=== PATIENT | female | born 1950 | race Caucasian/White ===

== ENCOUNTER → 2017-07-28 | Day surgery (SDC) | payer MEDICARE, OTHER ==
[~2017-07-28] MED LIST: Lactated Ringers 1,000 ML IV SCH; Lidocaine 1%/Sod Bicarbonate in NS 8.4% 1 ML Syringe IDERM PRN; Propofol 200 MG/20 ML SDV ONE; Sodium Chloride 0.9% 10 ML Syringe FLUSH PRN; fentaNYL 100 MCG/2 ML SDV ONE
--- NOTE | 2017-07-28 09:25 | PCM.PREANE ---
Preanesthetic Assessment - Procedure Proposed Procedure: Diagnostic colonsocopy - Anesthesia/Transfusion/Family Hx Anesthesia History: Prior Anesthesia Without Reaction Family History of Anesthesia Reaction: No Transfusion History: No Prior Transfusion(s) Additional History: Rheumatiod arthritis - Review of Systems General: No Symptoms Pulmonary: Other Cardiovascular: Other (HTN) Gastrointestinal: No Symptoms Neurological: No Symptoms Other: Reports: None, Thyroid Problems (graves disease ) - Physical Assessment NPO Status Date: 07/27/17 NPO Status Time: 19:00 O2 Sat by Pulse Oximetry: 98 Respiratory Rate: 16 Vital Signs: Last Vital Signs Temp 36.2 C 07/28/17 08:50 Pulse 61 07/28/17 08:50 Resp 16 07/28/17 08:50 BP 113/66 07/28/17 08:50 Pulse Ox 98 07/28/17 08:50 Height: 1.68 m Weight: 80.286 kg ASA Class: 2 Mental Status: Alert & Oriented x3 Airway Class: Mallampati = 2 Dentition: Reports: Normal Dentition Thyro-Mental Finger Breadths: 3 Mouth Opening Finger Breadths: 3 ROM/Head Extension: Full Lungs: Clear to Auscultation, Normal Respiratory Effort Cardiovascular: Regular Rate, Regular Rhythm - Allergies Allergies/Adverse Reactions: Allergies Allergy/AdvReac Type Severity Reaction Status Date / Time No Known Allergies Allergy Verified 07/27/17 12:06 - Blood Blood Available: No Product(s) Available: None - Anesthesia Plan Pre-Op Medication Ordered: None - Acknowledgements Anesthesia Type Planned: MAC Pt an Appropriate Candidate for the Planned Anesthesia: Yes Alternatives and Risks of Anesthesia Discussed w Pt/Guardian: Yes Pt/Guardian Understands and Agrees with Anesthesia Plan: Yes PreAnesthesia Questionnaire HEENT History: Reports: None Cardiovascular History: Reports: Hypertension Respiratory History: Reports: None Gastrointestinal History: Reports: Colon Polyp Genitourinary History: Reports: None 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 (See Below) Other OB/BYN History: bacterial vaginosis Musculoskeletal History: Reports: Osteoporosis, RA Neurological History: Reports: None Psychiatric History: Reports: None Endocrine/Metabolic History: Reports: Hypothyroidism, Other (See Below) Other Endocrine/Metabolic History: graves disease Hematologic History: Reports: None Immunologic History: Reports: None Oncologic (Cancer) History: Reports: Colon Dermatologic History: Reports: None - Past Surgical History Head Surgeries/Procedures: Reports: None HEENT Surgical History: Reports: None Cardiovascular Surgical History: Reports: None Respiratory Surgical History: Reports: None GI Surgical History: Reports: Colonoscopy, Other (See Below) Other GI Surgeries/Procedures: subtotal colectomy, rectal surgery Female Surgical History: Reports: None Male Surgical History: Reports: None Endocrine Surgical History: Reports: Thyroidectomy Neurological Surgical History: Reports: None Musculoskeletal Surgical History: Reports: None Oncologic Surgical History: Reports: None Dermatological Surgical History: Reports: None - SUBSTANCE USE Smoking Status *Q: Current Every Day Smoker (4cig/day) Second Hand Smoke Exposure: No Recreational Drug Use History: No - HOME MEDS Home Medications: Home Meds Alendronate Sodium [Fosamax] 70 mg PO TU 07/27/17 [History] Cholecalciferol (Vitamin D3) [Vitamin D3] 1,000 unit PO DAILY 07/27/17 [History] Folic Acid 1 mg PO DAILY 07/27/17 [History] Levothyroxine Sodium 137 mcg PO DAILY 07/27/17 [History] Loperamide [Imodium] 2 mg PO DAILY 07/27/17 [History] Losartan [Cozaar] 50 mg PO DAILY 07/27/17 [History] Methotrexate Sodium [Methotrexate] 4 tab PO WETH 07/27/17 [History] Naproxen Sodium [Aleve] 220 mg PO DAILY 07/27/17 [History] - CURRENT (IN HOUSE) MEDS Current Meds: Current Medications Lactated Ringer's (Ringers, Lactated) 1,000 mls @ 125 mls/hr IV ASDIRECTED ANDREZ Stop: 07/28/17 23:00 Last Admin: 07/28/17 09:00 Dose: 125 mls/hr Lidocaine/Sodium Bicarbonate (Buffered Lidocaine 1% In Ns 8.4%) 0.25 ml IDERM ONETIME PRN PRN Reason: Prior to IV Start Stop: 07/28/17 18:00 Last Admin: 07/28/17 09:00 Dose: 0.25 ml Sodium Chloride (Saline Flush) 10 ml FLUSH ASDIRECTED PRN PRN Reason: Keep Vein Open Stop: 07/28/17 18:00
--- NOTE | 2017-07-28 10:06 | PCM.OPNOTE ---
- General Post-Op/Procedure Note Date of Surgery/Procedure: 07/28/17 Operative Procedure(s): Colonoscopy Findings: Poor bowel preparation. Normal anastomosis with no stricturing or evidence of recurrence and no polyps or mass lesions seen. Anastomotic staple visualized. Pre Op Diagnosis: History of colon cancer and colorectal polyps status post sigmoid resection Post-Op Diagnosis: Unremarkable postresection colon Anesthesia Technique: MAC, Moderate Sedation Primary Surgeon: Celestine Medeiros Pathology: None EBL in mLs: 0 Complications: None Condition: Good Free Text/Narrative:: After adequate IV sedation and analgesia was obtained with monitoring the patient was placed on her left side. Perianal inspection and digital rectal examination were unremarkable. A lubricated colonoscope was inserted into the rectum and advanced under direct vision to the cecum. The bowel preparation was poor. Fine mucosal detail and diminutive polyps couldn't be observed. No gross mass lesions or inflammatory changes were seen throughout the entire examination. The anastomosis was visualized and there was a staple present. There was no stricturing or recurrence in this area. The rectum in both views was unremarkable. Photographs were taken for the patient and for the medical record. Air was removed as I finished the procedure which she tolerated well.
--- NOTE | 2017-07-28 10:08 | PCM48HPAN ---
Post Anesthesia Note - EVALUATION WITHIN 48HRS OF ANESTHETIC Vital Signs in Normal Range: Yes Patient Participated in Evaluation: Yes Respiratory Function Stable: Yes Airway Patent: Yes Cardiovascular Function Stable: Yes Hydration Status Stable: Yes Pain Control Satisfactory: Yes Nausea and Vomiting Control Satisfactory: Yes Mental Status Recovered: Yes
== END | disposition home or self-care (01) ==
LOC: JD.SDS 08:46
PROVIDERS: ATTEND Surgery
DX: Z12.11 Encounter for screening for malignant neoplasm of colon (principal); N76.0 Acute vaginitis; B96.89 Other specified bacterial agents as the cause of diseases classified elsewhere; I10 Essential (primary) hypertension; M81.0 Age-related osteoporosis without current pathological fracture; E66.3 Overweight; E89.0 Postprocedural hypothyroidism; M06.9 Rheumatoid arthritis, unspecified; F17.210 Nicotine dependence, cigarettes, uncomplicated; Z68.29 Body mass index [BMI] 29.0-29.9, adult; Z85.038 Personal history of other malignant neoplasm of large intestine; Z86.010 Personal history of colon polyps; Z79.899 Other long term (current) drug therapy; Z90.49 Acquired absence of other specified parts of digestive tract; Z80.0 Family history of malignant neoplasm of digestive organs
CPT/HCPCS: 45378; J3010; J7120; J2704

== ENCOUNTER 2020-03-19 07:58 | Day surgery (SDC) | payer MEDICARE, OTHER ==
[~2020-03-19 07:58] MED LIST changes: -Propofol 200 MG/20 ML SDV ONE; -fentaNYL 100 MCG/2 ML SDV ONE
--- NOTE | 2020-03-19 08:54 | PCM.PREANE ---
Preanesthetic Assessment - Procedure Proposed Procedure: Screening Colonoscopy - Anesthesia/Transfusion/Family Hx Anesthesia History: Prior Anesthesia Without Reaction Family History of Anesthesia Reaction: No Transfusion History: No Prior Transfusion(s) - Review of Systems General: No Symptoms Pulmonary: No Symptoms Cardiovascular: No Symptoms Gastrointestinal: No Symptoms Neurological: No Symptoms Other: Reports: Thyroid Problems (hypothyroid) - Physical Assessment NPO Status Date: 03/18/20 NPO Status Time: 00:00 Height: 1.7 m Weight: 94.5 kg ASA Class: 3 Mental Status: Alert & Oriented x3 Airway Class: Mallampati = 2 Dentition: Reports: Normal Dentition, [place](s), [place] Thyro-Mental Finger Breadths: 3 Mouth Opening Finger Breadths: 3 ROM/Head Extension: Full Lungs: Clear to Auscultation, Normal Respiratory Effort Cardiovascular: Regular Rate, Regular Rhythm - Allergies Allergies/Adverse Reactions: Allergies Allergy/AdvReac Type Severity Reaction Status Date / Time No Known Allergies Allergy Verified 03/18/20 13:34 - Blood Blood Available: No Product(s) Available: None - Anesthesia Plan Pre-Op Medication Ordered: None - Acknowledgements Anesthesia Type Planned: MAC Pt an Appropriate Candidate for the Planned Anesthesia: Yes Alternatives and Risks of Anesthesia Discussed w Pt/Guardian: Yes Pt/Guardian Understands and Agrees with Anesthesia Plan: Yes PreAnesthesia Questionnaire HEENT History: Reports: Impaired Vision, Sinusitis, Other (See Below) Other HEENT History: ACUTE PHARYNGITIS Cardiovascular History: Reports: Hypertension Respiratory History: Reports: None Gastrointestinal History: Reports: Colon Polyp Other Gastrointestinal History: POLYPOSIS Genitourinary History: Reports: None 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: Other (See Below) Other OB/BYN History: bacterial vaginosis Musculoskeletal History: Reports: Osteoporosis, RA, Other (See Below) Other Musculoskeletal History: LEG PAIN, MUSCLE WEAKNESS, OSTEOPOROSIS, RIGHT FOOT PAIN, RIGHT HIP PAIN Neurological History: Reports: None Psychiatric History: Reports: None Endocrine/Metabolic History: Reports: Hypothyroidism, Other (See Below) Other Endocrine/Metabolic History: graves disease Hematologic History: Reports: None Immunologic History: Reports: None Oncologic (Cancer) History: Reports: Colon, Other (See Below) Other Oncologic History: RECTAL CANCER, SKIN CANCER Dermatologic History: Reports: None, Other (See Below) Other Dermatologic History: ONCHOMYCOSIS - Infectious Disease History Infectious Disease History: Reports: None - Past Surgical History Head Surgeries/Procedures: Reports: None HEENT Surgical History: Reports: None Cardiovascular Surgical History: Reports: None Respiratory Surgical History: Reports: None GI Surgical History: Reports: Colonoscopy, Other (See Below) Other GI Surgeries/Procedures: subtotal colectomy, rectal surgery Female Surgical History: Reports: None Male Surgical History: Reports: None Endocrine Surgical History: Reports: Thyroidectomy Neurological Surgical History: Reports: None Musculoskeletal Surgical History: Reports: None Oncologic Surgical History: Reports: None Dermatological Surgical History: Reports: None - SUBSTANCE USE Smoking Status *Q: Current Every Day Smoker Tobacco Use Within Last Twelve Months: Cigarettes Second Hand Smoke Exposure: No Days Per Week of Alcohol Use: 0 Number of Drinks Per Day: 0 Total Drinks Per Week: 0 Recreational Drug Use History: No - HOME MEDS Home Medications: Home Meds Alendronate Sodium [Fosamax] 70 mg PO WE 07/27/17 [History] Folic Acid 2 mg PO SUMOTUWEFRSA 07/27/17 [History] Levothyroxine Sodium 137 mcg PO TUTH 07/27/17 [History] Losartan [Cozaar] 50 mg PO DAILY 07/27/17 [History] metHOTREXate sodium [Methotrexate] 8 tab PO TH 07/27/17 [History] Amoxicillin 2,000 mg PO ONETIME PRN 03/18/20 [History] Levothyroxine 150 mcg PO SUMOWEFRSA 03/18/20 [History] Multivitamin [Daily Multiple Vitamin] 1 tab PO DAILY 03/18/20 [History] Naproxen 500 mg PO Q12H PRN 03/18/20 [History] - CURRENT (IN HOUSE) MEDS Current Meds: Current Medications Lactated Ringer's (Ringers, Lactated) 1,000 mls @ 125 mls/hr IV ASDIRECTED ANDREZ Stop: 03/19/20 23:00 Lidocaine/Sodium Bicarbonate (Buffered Lidocaine 1% In Ns 8.4%) 0.25 ml IDERM ONETIME PRN PRN Reason: Prior to IV Start Stop: 03/19/20 23:00 Sodium Chloride (Saline Flush) 10 ml FLUSH ASDIRECTED PRN PRN Reason: Keep Vein Open Stop: 03/19/20 18:00
[2020-03-19] MEDS ORDERED: fentaNYL 100 MCG/2 ML SDV ONE (09:02)
[2020-03-19] MEDS ORDERED: Propofol 200 MG/20 ML SDV ONE (09:02)
[2020-03-19] MEDS ORDERED: Lidocaine 1% 4 ML ONE (09:04)
--- NOTE | 2020-03-19 09:57 | PCM.PRNOTE ---
- Free Text/Narrative Note: Date: 03/19/2020 Procedure: screening colonoscopy Endoscopist: Pa Delaney MD Findings: History of prior subtotal colectomy evident. Cecum reached with colonoscope at about 50 cm from anal verge. Submucosal lipomatous lesion noted in proximal portion. Single diverticulum in sigmoid with dark pigmentation of mucosal surface, small hyperplastic-appearing polyp in rectum, hypertrophied anal papillae. Detailed Report: The patient was taken to the endoscopy suite and placed in left lateral decubitus position. Time out was performed and monitored anesthesia care was initiated. Visual inspection of the anus revealed small external hemorrhoidal skin tag anteriorly. Digital rectal exam was unremarkable. The lubricated colonoscope was then inserted and advanced all the way to the cecum. The ileocecal valve was visualized. The prep was excellent. On slow withdrawal of the scope, mucosal surfaces were carefully inspected. A submucosal lesion consistent with lipoma was noted but not biopsied, about5-10 cm distal to the ileocecal valve. It was not obvious where the anastomosis was. A solitary small- mouth diverticulum was noted in the remnant sigmoid colon. The mucosal surface within the diverticulum appeared black, but biopsy was avoided due to risk for perforation. A subcentimeter hyperplastic-appearing polyp in the mid-rectum was removed with cold forceps. On retroflexion within the rectum hypertrophied anal papillae were noted. Air was suctioned prior to removal of the scope. The patient tolerated the procedure well.
== END 2020-03-19 10:13 | disposition home or self-care (01) ==
LOC: JD.SDS 07:58
PROVIDERS: ATTEND Surgery
DX: Z12.11 Encounter for screening for malignant neoplasm of colon (principal); K62.1 Rectal polyp; K62.89 Other specified diseases of anus and rectum; K57.30 Diverticulosis of large intestine without perforation or abscess without bleeding; I10 Essential (primary) hypertension; E03.9 Hypothyroidism, unspecified; Z79.890 Hormone replacement therapy; E66.3 Overweight; Z79.899 Other long term (current) drug therapy; F17.210 Nicotine dependence, cigarettes, uncomplicated; Z90.49 Acquired absence of other specified parts of digestive tract; Z68.33 Body mass index [BMI] 33.0-33.9, adult
CPT/HCPCS: 45380; J2001; J2704; J3010; J7120; 00812

== ENCOUNTER 2023-10-07 13:42 | Day surgery (SDC) | payer MEDICARE, OTHER ==
[2023-10-07] MEDS: Polymyxin B/Trimethoprim 10 ML Bottle EYERT SCH (13:25)
[2023-10-07] MEDS: Brimonidine 0.2% Ophth Soln 5 ML Bottle EYERT SCH (13:30)
[2023-10-07] MEDS: Phenylephrine 2.5% Ophth Soln 2 ML Bot EYERT SCH (13:35)
[2023-10-07] MEDS: Tropicamide 1% Ophth Soln 3 ML Bottle EYERT SCH (13:40)
[~2023-10-07 13:42] MED LIST changes: -Lactated Ringers 1,000 ML IV SCH; -Lidocaine 1%/Sod Bicarbonate in NS 8.4% 1 ML Syringe IDERM PRN; +Ondansetron 4 MG/2 ML SDV IVPUSH PRN; -Sodium Chloride 0.9% 10 ML Syringe FLUSH PRN
[2023-10-07] MEDS: Tetracaine HCl/PF 0.5% 4 ML Bottle EYEBOTH SCH (14:30)
[2023-10-07] MEDS: Lidocaine 1% PF 2 ML SDV INJECT SCH (14:49)
[2023-10-07] MEDS: Cefuroxime 10 MG/ML SYRINGE EYERT SCH (15:00)
[2023-10-07] MEDS: Pilocarpine 4% Ophth Soln 15 ML Bot EYERT SCH (15:02)
== END 2023-10-07 15:19 | disposition home or self-care (01) ==
LOC: JD.SDS 13:42
PROVIDERS: ATTEND Ophthalmology
DX: H25.813 Combined forms of age-related cataract, bilateral (principal); H25.89 Other age-related cataract; H16.103 Unspecified superficial keratitis, bilateral; H16.223 Keratoconjunctivitis sicca, not specified as Sjogren's, bilateral; H43.812 Vitreous degeneration, left eye; H35.3131 Nonexudative age-related macular degeneration, bilateral, early dry stage; H35.363 Drusen (degenerative) of macula, bilateral; I10 Essential (primary) hypertension; E07.9 Disorder of thyroid, unspecified; Z79.899 Other long term (current) drug therapy; Z98.890 Other specified postprocedural states; F17.210 Nicotine dependence, cigarettes, uncomplicated
CPT/HCPCS: 66984; A9270; J0697; 00142; J3490; V2788-GY

== ENCOUNTER 2023-11-11 11:44 | Day surgery (SDC) | payer MEDICARE, OTHER ==
[2023-11-11] MEDS: Polymyxin B/Trimethoprim 10 ML Bottle EYELF SCH (12:42)
[2023-11-11] MEDS: Brimonidine 0.2% Ophth Soln 5 ML Bottle EYELF SCH (12:50)
[2023-11-11] MEDS: Phenylephrine 2.5% Ophth Soln 2 ML Bot EYELF SCH (12:56)
[2023-11-11] MEDS: Tropicamide 1% Ophth Soln 3 ML Bottle EYELF SCH (13:00)
[2023-11-11] MEDS: Tetracaine HCl/PF 0.5% 4 ML Bottle EYEBOTH SCH (13:32)
[2023-11-11] MEDS: Lidocaine 1% PF 2 ML SDV INJECT SCH (13:50)
[2023-11-11] MEDS: Pilocarpine 4% Ophth Soln 15 ML Bot EYELF SCH (13:58)
[2023-11-11] MEDS: Cefuroxime 10 MG/ML SYRINGE EYELF SCH (13:58)
== END 2023-11-11 14:10 | disposition home or self-care (01) ==
LOC: JD.SDS 11:44
PROVIDERS: ATTEND Ophthalmology
DX: H25.812 Combined forms of age-related cataract, left eye (principal); I10 Essential (primary) hypertension; I25.10 Atherosclerotic heart disease of native coronary artery without angina pectoris; E89.0 Postprocedural hypothyroidism; Z95.5 Presence of coronary angioplasty implant and graft; Z79.890 Hormone replacement therapy; Z79.899 Other long term (current) drug therapy; Z88.1 Allergy status to other antibiotic agents
CPT/HCPCS: 66984; A9270; J0697; J3490

== ENCOUNTER 2025-03-03 02:02 | Emergency (ER) | payer MEDICARE, OTHER ==
[2025-03-03] MEDS: Lidocaine 1% with EPINEPHrine 1:100,000 20 ML MDV ONE (02:26)
[2025-03-03] MEDS: Diphtheria,Pertussis(Acell),Tetanus Vaccine 0.5 ML Syringe IM ONE (02:29)
[2025-03-03] MEDS: Lidocaine 1% with EPINEPHrine 1:100,000 20 ML MDV INJECT ONE (02:43)
== END 2025-03-03 03:00 | disposition home or self-care (01) ==
LOC: JD.ED 02:02
DX: S01.81XA Laceration without foreign body of other part of head, initial encounter (principal); Z23 Encounter for immunization; Z79.01 Long term (current) use of anticoagulants; W01.198A Fall on same level from slipping, tripping and stumbling with subsequent striking against other object, initial encounter
CPT/HCPCS: 12011; 70450; 70486; 90471; 90715; 99283; J2004

== ENCOUNTER 2025-03-05 21:04 | Emergency (ER) | payer MEDICARE, OTHER | END 2025-03-05 23:20 | disposition home or self-care (01) | LOC: JD.ED 21:04 | DX: H11.31 Conjunctival hemorrhage, right eye (principal); S01.81XD Laceration without foreign body of other part of head, subsequent encounter; Z79.01 Long term (current) use of anticoagulants; W03.XXXD Other fall on same level due to collision with another person, subsequent encounter; Z88.1 Allergy status to other antibiotic agents; I25.10 Atherosclerotic heart disease of native coronary artery without angina pectoris; I10 Essential (primary) hypertension; Z95.5 Presence of coronary angioplasty implant and graft; E03.9 Hypothyroidism, unspecified; Z90.49 Acquired absence of other specified parts of digestive tract; Z79.890 Hormone replacement therapy; Z79.899 Other long term (current) drug therapy | CPT/HCPCS: 99282 ==